=== PATIENT | female | born 1945 | race Caucasian/White ===

== ENCOUNTER → 2022-04-26 13:08 | Outpatient (CLI) | payer MEDICARE, OTHER, SELFPAY ==
[2022-05-01 13:17] LABS: Ca oxalate dihydrate 70 % (.); Ca oxalate monohydr 30 % (.); Size 2x2 mm (.)
== END ==
PROVIDERS: Visit Provider Urology
DX: N20.0 Calculus of kidney (principal); Z87.442 Personal history of urinary calculi; Z87.440 Personal history of urinary (tract) infections
CPT/HCPCS: 81002; 82365; 99214

== ENCOUNTER → 2022-05-01 11:41 | Outpatient (CLI) | payer MEDICARE, OTHER, SELFPAY ==
[2022-05-01 12:08] LABS: COVID19 -Nasal RAPID Negative (Negative)
== END ==
PROVIDERS: Visit Provider Urology
DX: Z20.822 Contact with and (suspected) exposure to COVID-19 (principal)
CPT/HCPCS: 87635

== ENCOUNTER 2022-05-01 12:30 | Day surgery (SDC) | payer MEDICARE, OTHER, SELFPAY ==
[2022-05-01] VITALS (8 sets, daily range): BP systolic 130–176; BP diastolic 66–98; PULSE 91–102; RESP 9–17; TEMP 36.2–36.8; O2SAT 99–100; BMI 21.5
--- NOTE | 2022-05-01 | DI.RAD.S_ITS ---
PROCEDURE: XR ABDOMEN 1V INDICATIONS: LEFT STENT PLACEMENT TECHNIQUE: One view of the abdomen acquired. COMPARISON: None. FINDINGS: Surgical changes and devices: Distal aspect of a ureteral stent is demonstrated. Pigtail catheter stent projects over the lower pelvis in the region of the urinary bladder. Bowel: Bowel gas pattern is normal. Soft tissues: No suspicious abdominal calcifications. Visualized solid organ contours appear normal in size. Bones: No suspicious bony lesions. IMPRESSION: Distal aspect of left ureteral stent. Dictated by: Masha Cedeno MD, PhD on 05/01/2022 at 16:12 Approved by: Masha Cedeno MD, PhD on 05/01/2022 at 16:13
[2022-05-01] MEDS: LACTATED RINGERS 1,000 ML 21 ML IV (13:28)
--- NOTE | 2022-05-01 13:52 | PM.PREOP ---
Pre-operative Note COVID-19 COVID-19 status: Negative Result date/Date tested (Pos, Neg/Pending): 05/01/22 Criteria for continued procedure: Delay expected to result in less-positive ultimate med/surg outcome and Non-surgical alternatives not available or appropriate per current SOC Interval Note History & Physical reviewed/Exam performed by Physician: Yes Changes to H&P: No
[2022-05-01] MEDS: CEFAZOLIN 2 GM/100 ML PREMIX 100 ML IV (15:18)
[2022-05-01] MEDS: IOPAMIDOL 50 ML VIAL INJ (15:36)
--- NOTE | 2022-05-01 15:40 | SUR.OPER ---
Lithotomy on padded OR bed, head on pillow, right arm secured on padded arm board at <90 degrees abduction. Left arm tucked at side with gel padding. Legs secured in padded yellow fins stirrups.
--- NOTE | 2022-05-01 16:02 | P.OP_ITS ---
Procedure & Clinicians Procedure: Cystoscopy left retrograde pyelogram and left stent placement. Same procedure as scheduled: No (Please see explanation in body of procedure in detail) Indications: This 77-year-old female recently passed a stone. And was noted to have stones in the kidney bilaterally. She comes today with the idea of ureteroscopy and possible stone basketing possible laser lithotripsy and stent placement for the left side which has a greater volume of stones. Surgeon: Marcelo Baptiste Click Yes if Unassisted: Yes Anesthesia Type: General Operative Notes Findings: Findings: External genitalia were normal. Urethral meatus and urethra normal. The ureteral orifices left and right were proximally normal position no efflux was noted. No other abnormalities were noted within the bladder. At left retrograde pyelogram the distal ureter was exceedingly thin and thread-like, likely secondary to the patient's recent stone passage. The ureter was just accepting of the 7 Tristanian stent which was passed and because of this narrowing was elected not to proceed with ureteroscopy in that I felt I would could be potential injury with passage of the ureteral access sheath. So instead stent was placed to allow the ureter to dilate and return in approximately 2-3 weeks for ureteroscopy and treatment of her stones. A 7 Tristanian by multi length stent was left in place in the left collecting system with no string. Closure Type: not applicable Specimen(s): none sent Prosthetic devices, grafts, tissues, transplants, or devices: Seven Tristanian by multi length ureteral stent left collecting system no string Estimated Blood Loss (mL): 0 Procedure in detail: Procedure in detail: After informed consent was obtained the patient was pritesh ntified and brought to the operating room. She was placed in a supine position on the table where anesthesia was induced and maintained. Patient was then transitioned to the lithotomy position. Once in the lithotomy position she was prepped, draped and prepared for transurethral procedure. After time-out and ensuring an adequate level of anesthesia 21 Tristanian cystoscope was passed through the urethra and in the bladder where cystoscopy was performed. The left ureteral orifice identified and a 5 Tristanian cone-tip catheter was impacted in the left ureteral orifice with some difficulty the orifice was somewhat ?rigid?, once in place contrast was instilled and fluoroscopy performed. The distal ureter as noted above was quite narrow and somewhat thread-like but did drain. Because of these findings and the rigidity noted with the cone-tipped catheter I elected not to proceed with placement of ureteral access sheath for fear of injury to the ureter. So instead a guidewire was passed up and into the collecting system and a 7 Tristanian stent with some resistance initially was passed up and into the collecting system over the wire position in the renal pelvis under fluoroscopic visualization in the bladder under direct vision. Grasping forceps was inserted the stent was grasped in Island harness removed and the stent was left in good position. Confirming position of the stent by fluo roscopy and direct vision again the bladder was drained the scope was removed the patient was awakened taken the postanesthesia care unit having tolerated the procedure well patient will follow-up my office in approximately 10 days 2-3 weeks. Complications: none Post-operative Condition: stable Disposition: PACU Plan for aftercare: Follow-up plan as noted above
[2022-05-01] MEDS: PHENAZOPYRIDINE 100 MG TABLET 200 MG PO (16:22)
[2022-05-01] MEDS: OXYBUTYNIN 5 MG TABLET PO (16:23)
== END 2022-05-01 17:00 | disposition home or self-care (01) ==
PROVIDERS: Referring Provider Urology; Visit Provider Urology
PROC: 0TF78ZZ Fragmentation in Left Ureter, Via Natural or Artificial Opening Endoscopic (ICD-10-PCS; CPT 52353; principal; 2022-05-01 14:00)
DX: N20.0 Calculus of kidney (principal); Z87.440 Personal history of urinary (tract) infections; Z20.822 Contact with and (suspected) exposure to COVID-19
CPT/HCPCS: 52332; 74018; 76000; 82962; 87635; C9803; J0690; J1100; J2250; J2405; J2704; J3010

== ENCOUNTER → 2022-06-05 10:14 | Outpatient (CLI) | payer MEDICARE, OTHER, SELFPAY ==
[2022-06-05 10:46] LABS: COVID19 -Nasal RAPID Negative (Negative)
== END ==
PROVIDERS: Visit Provider Urology
DX: Z20.822 Contact with and (suspected) exposure to COVID-19 (principal)
CPT/HCPCS: 87635

== ENCOUNTER 2022-06-05 10:18 | Day surgery (SDC) | payer MEDICARE, OTHER, SELFPAY ==
[2022-05-31 08:40] VITALS: BMI 21.4
[2022-06-05] VITALS (8 sets, daily range): BP systolic 154–178; BP diastolic 63–97; PULSE 78–94; RESP 11–20; TEMP 36–37; O2SAT 95–99; BMI 21.4
[2022-06-05] MEDS: LACTATED RINGERS 1,000 ML 42 ML IV (11:32)
--- NOTE | 2022-06-05 12:18 | PM.PREOP ---
Pre-operative Note COVID-19 COVID-19 status: Negative Result date/Date tested (Pos, Neg/Pending): 06/05/22 Criteria for continued procedure: Continuing or worsening of significant or severe pain and Delay expected to result in less-positive ultimate med/surg outcome Interval Note History & Physical reviewed/Exam performed by Physician: Yes Changes to H&P: No
[2022-06-05] MEDS: CEFAZOLIN 2 GM/100 ML PREMIX 100 ML IV (12:20)
--- NOTE | 2022-06-05 12:40 | SUR.OPER ---
Lithotomy on padded OR bed, head on pillow, arms secured on padded arm boards at <90 degrees abduction. Legs secured in padded yellow fins stirrups. Pt positioned per direction and supervision of Dr Baptiste.
--- NOTE | 2022-06-05 13:25 | P.OP_ITS ---
Procedure & Clinicians Procedure: Left ureteroscopy with basket extraction of stone left stent removal Same procedure as scheduled: Yes Indications: This is a very pleasant 77-year-old female who originally presented with a distal left ureteral calculus. She was discovered to have what appeared to be multiple 1-2 mm stones in the left kidney. She presented for attempted ureteroscopy have her ureter was too narrow to allow access so a stent was placed and time was allowed for the ureter dilate. She now presents for definitive ureteroscopy. Surgeon: Marcelo Baptiste Click Yes if Unassisted: Yes Anesthesia Type: General Operative Notes Findings: Findings: External genitalia normal. There is some mild vaginal mucosal atrophy and introital narrowing. The urethral meatus is normal urethra is normal along its length. There is minimal bullous edema around the left ureteral orifice with the stent in good position on the left. Right ureteral orifices normal with clear efflux. The bladder mucosa is normal and there were no other abnormalities noted within the bladder. The left ureters was visualized was normal along its length with normal mucosa. Within the kidney there were multiple Jose's plaques and 3 1-2 2 mm stones which were knocked loose 1 of which was basketed the others were too small to basket. No other large stones were noted at the end of the procedure sequential nephroscopy revealed only Jose's plaques. The stones were of a size that with the ureter dilated they should wash out without difficulty being as I said in the 1 mm or so class. No other abnormality was noted in the renal pelvis. The stent was removed and no stent replacement was done. Closure Type: not applicable Specimen(s): other (Single tiny stone fragment) Prosthetic devices, grafts, tissues, transplants, or devices: None Blood products transfused: none Procedure in detail: Procedure in detail: After informed consent was obtained, the patient was identified and brought to the operating room where she was placed in a supine position on the operative table and anesthesia was induced and maintained. After ensuring an adequate level of anesthesia the patient was transitioned to the lithotomy position. Once in the lithotomy position she was prepped, draped, prepared for Transurethral procedure. After time-out and ensuring an adequate level of anesthesia a 21 Burundian cystoscope was passed through the urethra into bladder where cystoscopy was performed. Grasping forceps was then inserted the tip of the stent was then grasped and brought out the meatus. A hybrid guidewire was then passed through the stent and coiled within the renal pelvis under fluoroscopic visualization. The stent was then backed out the wire left in place as a safety wire. Cystoscope was reinserted and a 2nd wire passed up and into the left collecting system. The scope bladder was drained scope was removed. Over the working wire the 2nd wire a ureteral access sheath was passed easily up and in the collecting system. The flexible ureteral scope was then passed up and into the collecting system and with contrast in place sequential nephroscopy was performed. The 3 stones 1 in a middle calyx and 2 in the lower pole calyx were identified as well as the Jose's plaques. Then using the basket the stones were ?knocked loose? and the largest basketed. This was a very small stone the other 2 were attempted to be basket but were too small to be basketed. They were washed into the renal pelvis and should pass easily. With this done again the collecting system was filled with contrast and sequential nephroscopy with the aid of the contrast in fluoroscope was performed revealing no further stones. The ureteral access sheath was backed out over the scope and the ureter was visualized along its entire length. There were no abnormalities noted the cystoscope was then inserted and the wire pulled out under direct vision. At this point the bladder was drained scope was removed the patient was awakened having tolerated the procedure well patient to be transferred to the postanesthesia care unit for recovery had a follow-up my off ice in approximately 10-14 days. There were no complications. Complications: none Post-operative Condition: stable Disposition: PACU Plan for aftercare: Patient to be discharged to home to follow up my office in 10-14 days.
[2022-06-08 08:37] LABS: Ca oxalate dihydrate 80 % (.); Ca oxalate monohydr 20 % (.); Size <1 mm (.)
== END 2022-06-05 14:40 | disposition home or self-care (01) ==
PROVIDERS: Referring Provider Urology; Visit Provider Urology
PROC: 0TF78ZZ Fragmentation in Left Ureter, Via Natural or Artificial Opening Endoscopic (ICD-10-PCS; CPT 52353; principal; 2022-06-05 12:30)
DX: N20.0 Calculus of kidney (principal); Z87.440 Personal history of urinary (tract) infections; Z20.822 Contact with and (suspected) exposure to COVID-19
CPT/HCPCS: 52352; 82365; 82962; 87635; C9803; J0690; J1100; J1885; J2405; J2704; J3010

== ENCOUNTER → 2022-06-14 14:56 | Outpatient (CLI) | payer MEDICARE, OTHER, SELFPAY ==
[2022-06-14 15:56] LABS: BUN Creatinine Ratio 18.7 (6-22); Blood Urea Nitrogen 14 mg/dL (7-17); Calcium 9.5 mg/dL (8.4-10.2); Estimated Glomerular Filt Rate > 60 mL/min (>60); Phosphorous 3.4 mg/dL (2.8-4.1)
[2022-06-19 15:07] LABS: Calcium 9.5 mg/dL (8.7-10.3); Parathyroid Hormone, Intact 42 pg/mL (15-65)
== END ==
PROVIDERS: Referring Provider Urology; Visit Provider Urology
DX: N20.0 Calculus of kidney (principal); Z96.0 Presence of urogenital implants; Z87.440 Personal history of urinary (tract) infections; Z87.442 Personal history of urinary calculi
CPT/HCPCS: 36415; 81002; 82310; 82565; 83970; 84100; 84520; 84550; 99213

== ENCOUNTER 2022-10-11 11:46 | Outpatient (RCR) | payer MEDICARE, OTHER, SELFPAY ==
--- NOTE | 2022-10-11 13:05 | PT.OIE ---
Current Diagnoses Benign paroxysmal vertigo, unspecified ear (10/11/22) Other peripheral vertigo, unspecified ear (10/11/22) Dizziness and giddiness (10/11/22) Past Medical History (Last Updated 07/19/22 @ 12:47 by Marcelo Baptiste MD) Calcium oxalate stones History of chronic urinary tract infection History of kidney stones Hx of migraines Hypercalciuria Kidney stones Retained ureteral stent Past Surgical History (Last Updated 05/31/22 @ 08:45 by Yaquelin Smith RN) Hx of cystoscopy (05/01/22) Visit Care Team Role Provider Type Shimon Elizabeth MD Attending Provider Physician Referring Provider Specialty: Ear, Nose, Throat Address: [address] [place] [address], [facility] Email: [email or web address] Physical Therapy Initial Evaluation PT-OP-A Visit Information Start: 10/11/22 12:49 Freq: Status: Active Protocol: Document 10/11/22 12:00 DCW (Rec: 10/11/22 13:02 DCW [id number]) Out-Patient Physical Therapy Visit Information Visit Information Visit Type Initial Evaluation Visit Start Time 12:00 Visit Stop Time 12:45 Total Visit Minutes 45 Visit Number 1 Number of PROFESSOR OF FINANCE Visits 0 Evaluation Information Evaluation Date 10/11/22 PT-OP-B Current Condition Start: 10/11/22 12:49 Freq: Status: Active Protocol: Document 10/11/22 12:00 DCW (Rec: 10/11/22 13:02 DCW [id number]) Current Condition History of Current Condition Onset Date Off and on past two years Current Complaints Positional vertigo History of Current Condition Pt is a 77 year old female complaining of a two year off- and-on history of motion- induced vertigo. Pt reports episodes last a brief amount of time, about a minute, but did have one episode that she describes as lasting up to two hours, although upon further questioning, vertigo was momentary, but pt just had continued stress and uneasiness lasting multiple hours afterward. Pt does note that between waiting to get in to see Dr Elizabeth, and then waiting to get in for a vestibular evaluation, she has actually not had symptoms for a few months now. Symptoms are provoked by largely by head movement, either looking up/down or getting out of bed. Pt denies recent hearing changes, tinnitus, diplopia, dysarthria, discoordination, or decreased mentation/ consciousness. Pt reports symptoms are waxing/waning in nature. Pt denies hx of HTN, diabetes, arrhythmia, head trauma, seizure, migraines, back/neck problems, CVA, anxiety/panic disorders, or excessive smoking or drinking. PT-OP-C Subjective Start: 10/11/22 12:49 Freq: Status: Active Protocol: Document 10/11/22 12:00 DCW (Rec: 10/11/22 13:02 DCW [id number]) OP-PT Subjective Patient Comments Patient Comments I wish I could have gotten in here sooner, when I was actually having symptoms. Patient Questionnaires Dizziness Handicap Inventory DHI Score 14% PT-OP-O Vestibular Start: 10/11/22 12:49 Freq: Status: Active Protocol: Document 10/11/22 12:00 DCW (Rec: 10/11/22 13:02 DCW [id number]) Vestibular Assessment Screening Tests Vestibular Artery Screen Negative Auditory Tests Marmolejo Test Within normal limits Rinne Test Negative Air Conduction Results Equal Visual Testing Smooth Pursuits Horizontal WNL Smooth Pursuits Vertical WNL Saccades Horizontal WNL Saccades Vertical WNL Heave Test Negative Thrust Head Negative Rick String Test WNL Convergence Test WNL Spontaneous Nystagmus Negative Positional Testing Eliezer-Hallpike Negative Left,Negative Right Rolling Test Negative Left,Negative Right Comments Vestibular Comments In left Denmark-Hallpike and left Roll test, pt did not a mild sensation of maybe some little movement somewhere on the wall, no associated nystagmus PT-OP-Q Treatments Start: 10/11/22 12:49 Freq: Status: Active Protocol: Document 10/11/22 12:00 DCW (Rec: 10/11/22 13:02 DCW [id number]) Self-Care/Home Management Treatment Education Other Education BPPV Anatomy/physiology, rehab potential, home Michelle PT-OP-T Assessment and Plan Start: 10/11/22 12:49 Freq: Status: Active Protocol: Document 10/11/22 12:00 DCW (Rec: 10/11/22 13:02 DCW [id number]) Physical Therapy Assessment Assessment Summary Assessment Pt vestibular testing entirely negative today, no signs or symptoms of any vestibular dysfunction at this time. Pt's subjective history is largely suggestive of BPPV, but pt admits that she has not been symptomatic for a few months, possible any potential BPPV has resolved on its own. Due to possibility of recurrence of BPPV, pt was educated on BPPV, expectations for treatment, possible recurrence (BPPV has a ~50% recurrence rate in the five years following treatment), and a home self-Michelle, if needed in the future. Pt instructed to contact Dr Elizabeth again for a new Vestibular Rehab referral if pt gets a recurrence of symptoms, but at this time, pt unlikely to benefit from any further skilled vestibular therapy. Physical Therapy Plan Frequency and Duration Plan of Care Start Date 10/11/22 Plan of Care End Date 10/12/22 Therapeutic Interventions Therapeutic Interventions Home Exercise Program, Vestibular Rehabilitation Discharge Physical Therapy Discharge Comments No further vestibular rehabilitation indicated, based on negative vestibular evaluation Next Visit Focus/Plan Next Note Type Discharge Summary
--- NOTE | 2022-10-11 13:05 | PT.OPPOC ---
Physical, Occupational & Speech Therapy At [facility] Current Diagnoses Benign paroxysmal vertigo, unspecified ear (10/11/22) Other peripheral vertigo, unspecified ear (10/11/22) Dizziness and giddiness (10/11/22) Visit Care Team Role Provider Type Shimon Elizabeth MD Attending Provider Physician Referring Provider Specialty: Ear, Nose, Throat Address: [address] [place] [address], [id number] Email: [email or web address] Plan Of Care PT-OP-T Assessment and Plan Start: 10/11/22 12:49 Freq: Status: Active Protocol: Document 10/11/22 12:00 DCW (Rec: 10/11/22 13:02 DCW [id number]) Physical Therapy Assessment Assessment Summary Assessment Pt vestibular testing entirely negative today, no signs or symptoms of any vestibular dysfunction at this time. Pt's subjective history is largely suggestive of BPPV, but pt admits that she has not been symptomatic for a few months, possible any potential BPPV has resolved on its own. Due to possibility of recurrence of BPPV, pt was educated on BPPV, expectations for treatment, possible recurrence (BPPV has a ~50% recurrence rate in the five years following treatment), and a home self-Michelle, if needed in the future. Pt instructed to contact Dr Elizabeth again for a new Vestibular Rehab referral if pt gets a recurrence of symptoms, but at this time, pt unlikely to benefit from any further skilled vestibular therapy. Physical Therapy Plan Frequency and Duration Plan of Care Start Date 10/11/22 Plan of Care End Date 10/12/22 Therapeutic Interventions Therapeutic Interventions Home Exercise Program, Vestibular Rehabilitation Discharge Physical Therapy Discharge Comments No further vestibular rehabilitation indicated, based on negative vestibular evaluation Next Visit Focus/Plan Next Note Type Discharge Summary Plan of Care Dates Plan of Care Start Date 10/11/22 Plan of Care End Date 10/12/22 Electronically Signed by: Abisai Zaragoza, PT 10/11/22 0585 If you are in agreement with this Plan of Care, please return a signed and dated copy. I have reviewed this Plan of Care and certify that the skilled therapy services above are required to meet the patient?s needs. Physician Signature Date Printed Name and Credentials Clinical Instructor Signature Printed Name and Credentials
== END 2022-10-16 15:56 | disposition home or self-care (01) ==
LOC: PHYS 11:46
PROVIDERS: Referring Provider Otolaryngology; Visit Provider Otolaryngology
DX: H81.4 Vertigo of central origin (principal); H81.10 Benign paroxysmal vertigo, unspecified ear; H81.399 Other peripheral vertigo, unspecified ear
CPT/HCPCS: 97161; 97535